=== PATIENT | male | born 1990 | race Caucasian/White ===

== ENCOUNTER 2018-03-24 14:34 | Emergency (ER) | payer SELFPAY ==
[~2018-03-24] VITALS: Ht 185.4 cm; Wt 78.0 kg
[2018-03-24] MEDS ORDERED: IBUPROFEN 600MG TABLET PO STA (17:49)
[2018-03-24 18:05] VITALS: BP 114/74
== END 2018-03-24 19:07 | disposition home or self-care (01) ==
LOC: ER 14:34
DX: S62.396A Other fracture of fifth metacarpal bone, right hand, initial encounter for closed fracture (principal); F12.10 Cannabis abuse, uncomplicated; W51.XXXA Accidental striking against or bumped into by another person, initial encounter; Y93.89 Activity, other specified; Y92.89 Other specified places as the place of occurrence of the external cause; Y99.8 Other external cause status
CPT/HCPCS: 29125; 73130; 99284